=== PATIENT | female | born 1970 | race Caucasian/White ===

== ENCOUNTER 2019-09-12 18:29 | Emergency (ER) | payer BC, OTHER ==
[~2019-09-12] VITALS: Ht 160 cm; Wt 52.2 kg
[~2019-09-12 18:29] MED LIST: IBUPROFEN 600600 M1 PO; IMITREX5 MG; NORCO 5-325 TA1 EACH PO; ORTHO TRI-CYCL1 EACH; TOPAMAX25 M1
[2019-09-12 23:05] VITALS: BP 144/82
== END 2019-09-12 23:06 | disposition home or self-care (01) ==
LOC: ER 18:29
DX: J06.9 Acute upper respiratory infection, unspecified (principal); J30.9 Allergic rhinitis, unspecified; Z98.890 Other specified postprocedural states; Z88.0 Allergy status to penicillin